=== PATIENT | female | born 1950 | race Hispanic/Latino ===

== ENCOUNTER 2017-09-01 18:19 | Emergency (ER) | payer MEDICARE, SELFPAY ==
[2017-09-01 18:56] VITALS: BMI 37.2
[2017-09-01 18:59] VITALS: TEMP 98.1
[2017-09-01 19:44] VITALS: BP 198/97; PULSE 90; RESP 20; O2SAT 96
--- NOTE | 2017-09-01 20:07 | C.PDOC ---
History Of Present Illness 67 year old female presents to the ED for evaluation of left-sided upper back and left shoulder pain for 3 days. She states the pain radiates down into her left hand, especially her left pink finger. Patient reports pain is worse with certain movements, such as turning head to the right. Patient denies recent injuries or heavy lifting. Chief Complaint (Nursing): Upper Extremity Problem/Injury History Per: Patient History/Exam Limitations: no limitations Onset/Duration Of Symptoms: Days (3) Current Symptoms Are (Timing): Still Present Quality: "Pain" Exacerbating Factor(s): Movement Additional History Per: Patient Past Medical History Reviewed: Historical Data, Nursing Documentation, Vital Signs Vital Signs: Last Vital Signs Temp 98.1 F 09/01/17 19:43 Pulse 90 09/01/17 19:43 Resp 20 09/01/17 19:43 BP 198/97 H 09/01/17 19:43 Pulse Ox 96 09/01/17 20:59 - Medical History PMH: HTN (DOES NOT TAKE MEDICATION) Surgical History: No Surg Hx Family History: States: Unknown Family Hx - Social History Hx Alcohol Use: No Hx Substance Use: No Review Of Systems Musculoskeletal: Positive for: Shoulder Pain (left), Back Pain (left-sided, upper ), Hand Pain (left, into 5th finger ) Physical Exam - Physical Exam Appears: Non-toxic, No Acute Distress Skin: Normal Color, Warm, Dry Head: Atraumatic, Normacephalic Eye(s): bilateral: Normal Inspection Oral Mucosa: Moist Neck: Supple Chest: Symmetrical, No Deformity, No Tenderness Cardiovascular: Rhythm Regular, No Murmur Respiratory: Normal Breath Sounds, No Rales, No Rhonchi, No Wheezing Back: Other (tenderness over left trapezius muscle and at base of left cervical spine. Reproducible pain to left shoulder that radiates into left hand and left 5th digit ) Extremity: Normal ROM, Capillary Refill (less than 2 seconds ) Pulses: Left Radial: Normal Neurological/Psych: Normal Speech, Normal Cognition, Normal Sensation Gait: Steady ED Course And Treatment ECG: Interpreted By Me, Viewed By Me ECG Rhythm: Sinus Rhythm Interpretation Of ECG: Normal Sinus Rhythm at rate 85bpm. No ectopy. No acute ST /T wave. All intervals within normal limits. 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 Qs in V1 and V2. Rate From EC O2 Sat by Pulse Oximetry: 96 (on RA ) Pulse Ox Interpretation: Normal Medical Decision Making Medical Decision Making: Impression: cervical radiculopathy Progress: EKG ordered and reviewed. Disposition - Disposition Disposition: HOME/ ROUTINE Disposition Time: 20:06 Condition: FAIR Prescriptions: Cyclobenzaprine [Cyclobenzaprine HCl] 10 mg PO TID #15 tab Naproxen [Naprosyn] 500 mg PO BID #20 tablet Instructions: Radiculopathy (DC), Cyclobenzaprine, Naproxen Forms: [employer] (Guyanese) - Clinical Impression Clinical Impression: Cervical radiculopathy - Scribe Statement The provider has reviewed the documentation as recorded by the Scribe (Marie Guy) Provider Attestation: All medical record entries made by the Scribe were at my direction and personally dictated by me. I have reviewed the chart and agree that the record accurately reflects my personal performance of the history, physical exam, medical decision making, and the department course for this patient. I have also personally directed, reviewed, and agree with the discharge instructions and disposition.
--- NOTE | 2017-09-02 11:42 | CARD ---
APPROVED REPORT EKG Measurement Heart [id number] <Conclusion> Normal sinus rhythm Possible Left atrial enlargement Septal infarct, age undetermined Abnormal ECG
== END 2017-09-01 20:12 | disposition home or self-care (01) ==
LOC: C.ER 18:19
DX: M54.12 Radiculopathy, cervical region (principal); I10 Essential (primary) hypertension; F17.210 Nicotine dependence, cigarettes, uncomplicated